=== PATIENT | male | born 1975 | race Caucasian/White ===

== ENCOUNTER → 2016-06-18 | Outpatient (CLI) | payer MEDICAID ==
[~2016-06-18] MED LIST: ACETAMINOPHEN-H1 TA2 PO; AMLO5TAB PO; BACTRIM DS 8001 TA1 PO; BENTYL20 MG PO; BUSPAR 10MG TAB10 MG PO; CARVEDILOL6.25 M1 PO; CEPHALEXIN500 MG PO; DICLOFENAC SODI75 M3 PO; FLUOXETINE40 MG PO; GINKGO BILOBA PO; GLIMEPIRIDE1 MG PO; INDOCIN25 MG PO; KEFLEX 500MG.500 MG PO; LACTULOSE10 GM/15 M PO; LISINOPRIL 20MG20 MG PO; METFORMIN1000 MG PO; MINOCYCLINE 10100 MG PO; MINOCYCLINE HC100 MG PO; MONODOX100 MG PO; MOTRIN 600MG.600 MG PO; NORCO 325 MG-51 TAB PO; POTASSIUM PO; PREDNISONE 20MG20 MG PO; PROVENTIL0.09 MG/A1 IH; SEPTRA DS 800 M1 TAB PO; SIMVASTATIN40 MG PO; SUMATRIPTAN SU100 MG PO; TESSALON PERLE100 MG PO; TRAZODONE 50MG50 MG PO; ZITHROMAX Z PA250 MG PO; ZOFRAN ODT4 MG PO; ZOFRAN4 MG PO
[2016-06-18 10:19] LABS: HEMOGLOBIN 14.6 g/dL (14.1-18.0); LYMPH # 1.6 K/mm3 (0.7-4.5); LYMPH % 25.2 % (10-50)
[2016-06-18 10:33] LABS: BUN 19 mg/dL (7-18)
[2016-06-18 10:35] LABS: GFR (ESTIMATED) 106 ML/MIN (>60)
[2016-06-21 20:35] LABS: Testosterone, Total, LC/MS 444.4 ng/dL (348.0-1197.0)
== END ==
LOC: LAB 09:27
PROVIDERS: Nurse Practitioner Family
DX: E11.9 Type 2 diabetes mellitus without complications (principal); N52.9 Male erectile dysfunction, unspecified

== ENCOUNTER → 2017-01-21 | Outpatient (CLI) | payer MEDICAID ==
[~2017-01-21] MED LIST changes: +AMOXICILLIN875 MG PO; +LEVAQUIN500 MG PO
[2017-01-21 13:49] LABS: HEMOGLOBIN 15.5 g/dL (14.1-18.0); LYMPH # 3.3 K/mm3 (0.7-4.5); LYMPH % 34.5 % (10-50)
[2017-01-21 14:14] LABS: BUN 16 mg/dL (7-18); GFR (ESTIMATED) 93 ML/MIN (>60)
== END ==
LOC: LAB 13:30
PROVIDERS: Nurse Practitioner Family
DX: E11.9 Type 2 diabetes mellitus without complications (principal)